=== PATIENT | female | born 2000 | race Two or more races ===

== ENCOUNTER 2019-03-02 00:53 | Observation (INO) | payer MEDICAID | END 2019-03-02 01:01 | disposition left against medical advice (07) | DRG 861 | LOC: LDRP 00:53 | PROVIDERS: ADMIT Obstetrics & Gynecology; ATTEND Obstetrics & Gynecology | DX: Z53.21 Procedure and treatment not carried out due to patient leaving prior to being seen by health care provider (principal) | CPT/HCPCS: G0378 ==